=== PATIENT | female | born 1985 | race Two or more races ===

== ENCOUNTER 2019-10-08 16:54 | Observation (INO) | payer MEDICAID, SELFPAY ==
[2019-10-08 20:26] VITALS: BP 115/70
[2019-10-11] MEDS ORDERED: VITA1TAB44 PO (05:46)
[2019-10-11] MEDS ORDERED: PREN-543 PO (05:46)
[2019-10-11] MEDS ORDERED: OSC500 PO (05:46)
== END 2019-10-08 18:10 | disposition home or self-care (01) ==
LOC: MFCC 16:54
PROVIDERS: ADMIT Obstetrics & Gynecology; ATTEND Obstetrics & Gynecology
DX: Z03.818 Encounter for observation for suspected exposure to other biological agents ruled out (principal); O36.8130 Decreased fetal movements, third trimester, not applicable or unspecified; Z3A.38 38 weeks gestation of pregnancy
CPT/HCPCS: G0378; U0003